=== PATIENT | male | born 1990 | race Caucasian/White ===

== ENCOUNTER 2021-01-13 04:46 | Emergency (ER) | payer OTHER ==
[~2021-01-13] VITALS: Ht 170.2 cm; Wt 99.8 kg
[2021-01-13] MEDS ORDERED: ASA81BEC PO (05:04)
[2021-01-13] MEDS ORDERED: ANTACID200 MG PO (05:04)
[2021-01-13] MEDS ORDERED: LINSEED OIL1 ML PO (05:04)
[2021-01-13 05:28] LABS: ABSOLUTE BASOPHILS 0.1 thou/uL (0.0-0.2); ABSOLUTE EOSINOPHILS 0.1 thou/uL (0.0-0.7); ABSOLUTE LYMPHOCYTES 1.6 thou/uL (0.8-5.3); ABSOLUTE MONOCYTES 0.5 thou/uL (0.0-1.2); ABSOLUTE NEUTROPHILS 3.5 thou/uL (1.6-8.1); EOSINOPHILS 1.1 %; HEMATOCRIT 44.1 % (42.0-52.0); HEMOGLOBIN 15.1 gm/dL (14.0-18.0); LYMPHOCYTES 27.8 %; MCH 31.2 pg (26.0-34.0); MCHC 34.3 g/dL (28.0-37.0); MONOCYTES 8.8 %; MPV 8.7 fl. (7.2-11.1); NUCLEATED RBCS 0 /100WBC; PLATELET COUNT* 247 thou/uL (150-400); POLYS 61.3 %; RBC 4.85 mil/uL (4.50-6.00); RDW-CV 13.3 % (10.5-14.5); WBC 5.7 thou/uL (4.0-11.0)
[2021-01-13 05:57] LABS: CALCIUM 8.2 mg/dL (8.5-10.1); CREATININE 0.9 mg/dL (0.6-1.3); POTASSIUM 3.8 mmol/L (3.5-5.1)
[2021-01-13] MEDS ORDERED: LOPRESSOR50 MG PO (06:34)
[2021-01-13 06:40] VITALS: BP 121/73
[2021-01-13 07:52] LABS: ALBUMIN 3.6 g/dL (3.4-5.0); MAGNESIUM 1.9 mg/dL (1.8-2.4); TOTAL BILIRUBIN 0.2 mg/dL (<0.1-1.0); TOTAL PROTEIN 6.9 g/dL (6.4-8.2)
--- NOTE | 2021-01-13 10:24 | EKG ---
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
== END 2021-01-13 06:40 | disposition home or self-care (01) ==
LOC: M.ERS 04:46
PROVIDERS: Emergency Medicine
DX: R00.2 Palpitations (principal)

== ENCOUNTER 2021-01-22 03:46 | Emergency (ER) | payer OTHER ==
[~2021-01-22] VITALS: Ht 170.2 cm; Wt 99.8 kg
[~2021-01-22 03:46] MED LIST: ANTACID200 MG PO; ASA81BEC PO; LINSEED OIL1 ML PO; LOPRESSOR50 MG PO
[2021-01-22] MEDS ORDERED: PREVACID30 MG PO (03:50)
[2021-01-22 04:26] LABS: ABSOLUTE EOSINOPHILS 0.1 thou/uL (0.0-0.7); ABSOLUTE LYMPHOCYTES 1.3 thou/uL (0.8-5.3); ABSOLUTE MONOCYTES 0.4 thou/uL (0.0-1.2); ABSOLUTE NEUTROPHILS 3.4 thou/uL (1.6-8.1); BASOPHILS 0.5 %; HEMATOCRIT 42.7 % (42.0-52.0); HEMOGLOBIN 14.7 gm/dL (14.0-18.0); LYMPHOCYTES 25.7 %; MCH 30.7 pg (26.0-34.0); MCHC 34.5 g/dL (28.0-37.0); MCV 89.1 fL (80.0-100.0); MONOCYTES 6.9 %; MPV 8.5 fl. (7.2-11.1); NUCLEATED RBCS 0 /100WBC; PLATELET COUNT* 206 thou/uL (150-400); POLYS 65.9 %; RBC 4.79 mil/uL (4.50-6.00); RDW-CV 13.2 % (10.5-14.5); WBC 5.2 thou/uL (4.0-11.0)
[2021-01-22 04:29] LABS: URINE BILIRUBIN NEGATIVE (Negative); URINE BLOOD NEGATIVE (Negative); URINE CLARITY CLEAR; URINE COLOR YELLOW; URINE GLUCOSE-RANDOM NEGATIVE (Negative); URINE KETONES NEGATIVE (Negative); URINE LEUKOCYTES-REFLEX NEGATIVE (Negative); URINE NITRITE-REFLEX NEGATIVE (Negative); URINE PROTEIN NEGATIVE (Negative); URINE UROBILINOGEN 0.2 E.U./dl (0.2-1.0)
[2021-01-22 04:36] LABS: AMP/METHAMP Negative (Negative); BARBITURATES Negative (Negative); BENZODIAZEPINES Negative (Negative); COCAINE Negative (Negative); METHADONE Negative (Negative); OPIATES Negative (Negative); PCP Negative (Negative); THC Negative (Negative)
[2021-01-22 04:36] LABS: CALCIUM 8.5 mg/dL (8.5-10.1); POTASSIUM 3.8 mmol/L (3.5-5.1)
[2021-01-22 04:40] LABS: ALBUMIN 3.5 g/dL (3.4-5.0); TOTAL BILIRUBIN 0.3 mg/dL (<0.1-1.0); TOTAL PROTEIN 7.2 g/dL (6.4-8.2)
[2021-01-22 06:53] VITALS: BP 103/48
--- NOTE | 2021-01-22 13:58 | EKG ---
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
== END 2021-01-22 06:53 | disposition home or self-care (01) ==
LOC: M.ERS 03:46
PROVIDERS: Personal Emergency Response Attendant
DX: R00.2 Palpitations (principal); I49.9 Cardiac arrhythmia, unspecified; Z79.899 Other long term (current) drug therapy

== ENCOUNTER → 2021-01-26 | Outpatient (CLI) | payer OTHER ==
[~2021-01-26] MED LIST changes: +PREVACID30 MG PO
[2021-01-26 12:16] LABS: CHOLESTEROL 148 mg/dL (<200); HDL CHOLESTEROL 45 mg/dL (>40); LDL CHOLESTEROL 83 mg/dL (<100); SERUM ASSESSMENT Clear; TC:HDL 3.3 Ratio (Not establshd); TRIGLYCERIDE 104 mg/dL (<150); VLDL 21 mg/dL (<40)
== END ==
LOC: M.LAB 11:41
PROVIDERS: ATTEND Nurse Practitioner
DX: R00.2 Palpitations (principal); Z13.220 Encounter for screening for lipoid disorders

== ENCOUNTER 2021-02-19 18:38 | Emergency (ER) | payer OTHER ==
[~2021-02-19] VITALS: Ht 170.2 cm; Wt 95.3 kg
[2021-02-19 19:03] LABS: ABSOLUTE BASOPHILS 0.1 thou/uL (0.0-0.2); ABSOLUTE LYMPHOCYTES 1.7 thou/uL (0.8-5.3); ABSOLUTE MONOCYTES 0.4 thou/uL (0.0-1.2); BASOPHILS 0.8 %; EOSINOPHILS 0.2 %; HEMATOCRIT 44.6 % (42.0-52.0); HEMOGLOBIN 15.6 gm/dL (14.0-18.0); LYMPHOCYTES 23.3 %; MCH 31.2 pg (26.0-34.0); MCHC 35.1 g/dL (28.0-37.0); MCV 88.9 fL (80.0-100.0); MONOCYTES 5.6 %; MPV 9.3 fl. (7.2-11.1); NUCLEATED RBCS 0 /100WBC; PLATELET COUNT* 258 thou/uL (150-400); POLYS 70.1 %; RBC 5.02 mil/uL (4.50-6.00); RDW-CV 13.1 % (10.5-14.5); WBC 7.2 thou/uL (4.0-11.0)
[2021-02-19 19:16] LABS: CALCIUM 9.4 mg/dL (8.5-10.1); CREATININE 1.4 mg/dL (0.6-1.3); POTASSIUM 3.4 mmol/L (3.5-5.1)
[2021-02-19 19:32] LABS: ALBUMIN 4.5 g/dL (3.4-5.0); MAGNESIUM 1.8 mg/dL (1.8-2.4); TOTAL BILIRUBIN 0.9 mg/dL (<0.1-1.0); TOTAL PROTEIN 8.3 g/dL (6.4-8.2)
[2021-02-19 19:56] LABS: URINE BILIRUBIN NEGATIVE (Negative); URINE BLOOD NEGATIVE (Negative); URINE CLARITY CLEAR; URINE COLOR YELLOW; URINE GLUCOSE-RANDOM NEGATIVE (Negative); URINE KETONES TRACE (Negative); URINE LEUKOCYTES-REFLEX NEGATIVE (Negative); URINE NITRITE-REFLEX NEGATIVE (Negative); URINE PROTEIN NEGATIVE (Negative); URINE UROBILINOGEN 0.2 E.U./dl (0.2-1.0)
[2021-02-19 20:08] LABS: AMP/METHAMP Negative (Negative); BARBITURATES Negative (Negative); BENZODIAZEPINES Negative (Negative); COCAINE Negative (Negative); METHADONE Negative (Negative); OPIATES Negative (Negative); PCP Negative (Negative); THC Negative (Negative)
[2021-02-19 22:17] VITALS: BP 113/79
[2021-02-19] MEDS ORDERED: PROTONIX40 M2 PO (22:20)
--- NOTE | 2021-02-20 09:49 | EKG ---
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
== END 2021-02-19 22:15 | disposition home or self-care (01) ==
LOC: M.ERS 18:38
PROVIDERS: Nurse Practitioner Family
DX: R07.89 Other chest pain (principal); R86.0 Abnormal level of enzymes in specimens from male genital organs; Z79.899 Other long term (current) drug therapy

== ENCOUNTER 2021-04-02 18:14 | Emergency (ER) | payer OTHER ==
[~2021-04-02] VITALS: Ht 170.2 cm; Wt 86.2 kg
[~2021-04-02 18:14] MED LIST changes: +PROTONIX40 M2 PO
[2021-04-02 19:29] VITALS: BP 103/53
--- NOTE | 2021-04-03 11:24 | EKG ---
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[facility] : 1990 Requested By: Berta Parisi Order Number: [id number] MD: Feli Rico Measurements Intervals [place] Rate: 89 P: 61 [place]: 177 QRS: 39 QRSD: 70 T: 38 QT: 334 QTc: 407 Interpretive Statements Sinus rhythm ST elev, probable normal early repol pattern Compared to ECG 02/19/2021 18:42:23 no change Electronically Signed On 04-03-2021 11:24:41 CDT by Feli Rico [email or web address] <ELECTRONICALLY SIGNED> By: Feli Rico MD, [facility] 04/03/21 1124 1819 1819 Feli Rico MD, [facility] /EPI
== END 2021-04-02 19:30 | disposition left against medical advice (07) ==
LOC: M.ERS 18:14
DX: R07.89 Other chest pain (principal); Z53.21 Procedure and treatment not carried out due to patient leaving prior to being seen by health care provider

== ENCOUNTER 2021-05-01 20:39 | Emergency (ER) | payer OTHER ==
[~2021-05-01] VITALS: Ht 175.3 cm; Wt 87.5 kg
[2021-05-01] MEDS ORDERED: OMEPRAZOLE20 M2 PO (21:04)
[2021-05-01 21:10] LABS: ABSOLUTE LYMPHOCYTES 2.3 thou/uL (0.8-5.3); ABSOLUTE MONOCYTES 0.4 thou/uL (0.0-1.2); ABSOLUTE NEUTROPHILS 2.8 thou/uL (1.6-8.1); BASOPHILS 0.3 %; EOSINOPHILS 0.8 %; HEMATOCRIT 44.1 % (42.0-52.0); HEMOGLOBIN 15.1 gm/dL (14.0-18.0); LYMPHOCYTES 41.3 %; MCH 29.7 pg (26.0-34.0); MCHC 34.2 g/dL (28.0-37.0); MCV 86.9 fL (80.0-100.0); MONOCYTES 7.2 %; MPV 9.1 fl. (7.2-11.1); NUCLEATED RBCS 0 /100WBC; PLATELET COUNT* 238 thou/uL (150-400); POLYS 50.4 %; RBC 5.07 mil/uL (4.50-6.00); WBC 5.5 thou/uL (4.0-11.0)
[2021-05-01 21:27] LABS: CALCIUM 8.5 mg/dL (8.5-10.1); CREATININE 1.3 mg/dL (0.6-1.3)
[2021-05-01 21:32] LABS: ALBUMIN 3.9 g/dL (3.4-5.0); TOTAL BILIRUBIN 0.4 mg/dL (<0.1-1.0); TOTAL PROTEIN 6.7 g/dL (6.4-8.2)
[2021-05-01] MEDS ORDERED: CARAFATE 1 GM TA1 GM PO (23:47)
[2021-05-02] VITALS: BP 104/59
--- NOTE | 2021-05-02 14:34 | EKG ---
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1990 Requested By: Berta Parisi Order Number: [id number] MD: Luis Rico Measurements Intervals [place] Rate: 85 P: 50 [place]: 203 QRS: 33 QRSD: 69 T: 30 QT: 349 QTc: 415 Interpretive Statements Sinus rhythm Borderline prolonged [place] interval ST elev, probable normal early repol pattern Compared to ECG 04/02/2021 18:19:14 No significant changes Electronically Signed On 05-02-2021 14:34:17 CDT by Luis Rico [email or web address] <ELECTRONICALLY SIGNED> By: Luis Rico MD, [facility] 05/02/21 1434 41 41 Luis Rico MD, [facility] /EPI
== END 2021-05-02 | disposition home or self-care (01) ==
LOC: M.ERS 20:39
PROVIDERS: Personal Emergency Response Attendant
DX: R07.89 Other chest pain (principal); Z79.899 Other long term (current) drug therapy; R00.9 Unspecified abnormalities of heart beat